=== PATIENT | male | born 1970 | race Caucasian/White ===

== ENCOUNTER 2016-03-21 08:57 | Emergency (ER) | payer SELFPAY ==
[~2016-03-21] VITALS: Ht 167.6 cm; Wt 80.0 kg
[2016-03-21 08:58] VITALS: BP 168/74; PULSE 60; RESP 16; TEMP 97.5; O2SAT 97
[2016-03-21] MEDS ORDERED: IBUP800T23 PO (09:43)
[2016-03-21] MEDS ORDERED: ERYTOIN10 LEFT EYE (09:43)
--- NOTE | 2016-03-21 09:44 | PD ---
HPI Chief Complaint: Eye Problems/Injury Time Seen by Provider: 09:40 Travel History International Travel<30 days: No Contact w/Intl Traveler<30days: No Traveled to known affect area: No History of Present Illness HPI Patient is Syrian-speaking and presents with a friend who is interpreting and the patient verbalizes authorization for the friend to interpret. 45-year-old who presents to the emergency Department with complaint of left eye pain since yesterday after cutting metal in thinking he has a piece of metal stuck in his eye. Reports clear drainage. Denies change in vision. Denies fever, chills, nausea, vomiting. Has not taken any medications or drainage from his to be symptoms. Pain is aggravated with blinking of the eye and some eye. No known relieving factors. Denies allergies. Denies significant past medical history. No other modifying factors or associated signs and symptoms. PFSH Past Medical History Medical History: Denies Significant Hx Social History Tobacco Use: No Allergies-Medications (Allergen,Severity, Reaction): Coded Allergies: No Known Allergies (Unverified , 03/21/16) Reported Meds & Prescriptions Reported Meds & Active Scripts Active Ibuprofen 800 Mg Tab 800 Mg PO Q6HR PRN Erythromycin Opth Oint 5 Mg/Gm Oint 1 Applic LEFT EYE QID 7 Days Review of Systems Except as stated in HPI: all other systems reviewed are Neg Physical Exam Narrative GENERAL: Well-nourished, well-developed male patient, in no acute distress SKIN: Warm and dry. HEAD: Atraumatic. Normocephalic. EYES: Pupils equal and round at 3 mm with brisk reaction. PERRLA. EOMI. left lid eversion with no foreign body noted. Left eye with mild scleral erythema and without lid edema. No orbital tenderness, erythema or cellulitis. Left eye without photophobia. No consensual photophobia. No scleral icterus. Clear drainage. [place] lamp exam reveals a small corneal abrasion or possible foreign body at the 9:00 position over the outer aspect of the iris. If it is a foreign body, there is an overgrowth over it. ENT: Mucosa pink and moist. Airway patent. NECK: Trachea midline. CARDIOVASCULAR: Regular rate. RESPIRATORY: No accessory muscle use. NEUROLOGICAL: Awake and alert. Oriented 3. No obvious cranial nerve deficits. Motor grossly within normal limits. Normal speech. PSYCHIATRIC: Appropriate mood and affect; insight and judgment normal. Data Data Last Documented VS Vital Signs Date Time Temp Pulse Resp B/P Pulse Ox O2 Delivery O2 Flow Rate FiO2 03/21/16 08:58 97.5 60 16 168/74 97 Room Air Orders MDM Medical Decision Making Medical Screen Exam Complete: Yes Emergency Medical Condition: Yes Medical Record Reviewed: Yes Differential Diagnosis eye foreign body, corneal abrasion, corneal ulceration Narrative Course 45-year-old male that is Syrian-speaking. His friend is at the bed interpreting and the patient has authorized the patient to interpret. Physical exam concludes a possible foreign body and corneal abrasion to the left eye. I cannot determine its it is a foreign body. [place] lamp exam reveals a small corneal abrasion; but I cannot rule out foreign body at this time. Erythromycin and ibuprofen prescribed for home. This is a work-related injury and the patient is claiming Workmen's Comp. Instructed patient to follow up with rental clerk tool and equipment on Wednesday. Dr. Yanira Harry's information provided. Patient and friend verbalized understanding and agreement to plan of care. Patient is medically cleared and stable for discharge. Discussed reasons to return to the emergency department. Instructed patient to follow up with primary care provider. Patient agrees with treatment plan. The patients vital signs are stable and the patient is stable for outpatient follow-up and treatment. Patient discharged home, stable and in no acute distress. Diagnosis Primary Impression: Corneal abrasion, left Qualified Code: S05.02XA - Corneal abrasion, left, initial encounter Referrals: Yanira Harry MDmining teacher Primary Care Physician Patient Instructions: Corneal Abrasion (ED), Eye Foreign Body (ED), General Instructions Departure Forms: Tests/Procedures Additional Instructions: Ibuprofen or Tylenol as directed and as needed to reduce pain Do not patch the eye Do not rub the eye Refrigerate eye drops as needed to reduce pain Cool compresses to the eye as needed to reduce pain Follow-up with ophthalmology on Wednesday03/23/2016 Primary care provider Return to the emergency department immediately Med/Other Pt SpecificInfo: Prescription(s) given Scripts Ibuprofen 800 Mg [id number] Mg PO Q6HR PRN (PAIN) #30 TAB Ref 0 Prov:Amalia Cruz LABORATORY EQUIPMENT INSTALLER 03/21/16 Erythromycin Opth Oint 5 Mg/Gm Oint1 Applic LEFT EYE QID 7 Days Ref 0 Prov:Amalia Cruz 03/21/16 Disposition: 01 DISCHARGE HOME Condition: Stable Amalia Cruz Mar 21, 2016 09:43 Amalia Cruz Mar 21, 2016 09:43
== END 2016-03-21 10:24 | disposition home or self-care (01) ==
LOC: NEPB 08:57
DX: S05.02XA Injury of conjunctiva and corneal abrasion without foreign body, left eye, initial encounter (principal); W22.8XXA Striking against or struck by other objects, initial encounter; Y93.H3 Activity, building and construction
CPT/HCPCS: 99283